=== PATIENT | male | born 1980 | race American Indian/Alaskan Native ===

== ENCOUNTER 2021-10-25 04:24 | Emergency (ER) | payer SELFPAY | END 2021-10-25 07:41 | disposition left against medical advice (07) | LOC: ED 04:24 | DX: R07.9 Chest pain, unspecified (principal); Z53.21 Procedure and treatment not carried out due to patient leaving prior to being seen by health care provider ==

== ENCOUNTER 2021-12-11 01:35 | Emergency (ER) | payer BC ==
[2021-12-11] MEDS ORDERED: ONDANSETRON 4 MG/2 ML INJ IV ONE (02:13)
[2021-12-11] MEDS ORDERED: KETOROLAC 30 MG/1 ML INJ IV ONE (02:13)
[2021-12-11] MEDS ORDERED: FAMOTIDINE 20 MG/2 ML INJ IV ONE (02:13)
[2021-12-11 02:54] LABS: Basophils % (Auto) 0.2 % (0.0-1.8); Eosinophils % (Auto) 0.2 % (0.0-4.3); Hematocrit 49.4 % (35.5-45.6); Hemoglobin 16.8 gm/dl (11.8-15.2); Lymphocytes # (Auto) 1.2 K/mm3 (1.2-5.4); Lymphocytes % (Auto) 16.6 % (13.4-35.0); Mean Corpuscular HGB Conc 34 % (32-34); Mean Corpuscular Volume 89 fl (84-94); Monocytes # (Auto) 0.2 K/mm3 (0.0-0.8); Monocytes % (Auto) 3.6 % (0.0-7.3); Platelet Count 286 K/mm3 (140-440); Red Blood Count 5.58 M/mm3 (3.65-5.03); Red Cell Distribution Width 13.4 % (13.2-15.2)
[2021-12-11 03:04] LABS: Alanine Aminotransferase 33 units/L (7-56); BUN/Creatinine Ratio 18; Blood Urea Nitrogen 14 mg/dL (9-20); Calcium 9.9 mg/dL (8.4-10.2); Hemolysis Index 19
--- NOTE | 2021-12-11 03:35 | Ultrasound Report ---
ULTRASOUND ABDOMEN, LIMITED INDICATION / CLINICAL INFORMATION: RUQ abdominal pain. COMPARISON: None available. FINDINGS: PANCREAS: Visualized portion shows no significant abnormality. LIVER: No significant abnormality. Normal hepatopedal blood flow in the main portal vein. GALLBLADDER: Distended gallbladder containing small stones. No wall thickening. BILE DUCTS: No significant abnormality. Common bile duct measures 3.6 mm. FREE FLUID: None. ADDITIONAL FINDINGS: None. IMPRESSION: 1. Gallstones within a distended gallbladder. 2. No wall thickening or biliary dilatation. Signer Name: Jose Antonio Nicholson MD Signed: 12/11/2021 3:31 AM Workstation Name: [id number]
--- NOTE | 2021-12-11 04:12 | Emergency Department Report ---
ED Abdominal Pain HPI - General Chief Complaint: Abdominal Pain Stated Complaint: CHEST PAIN Source: patient Mode of arrival: Ambulatory Limitations: No Limitations - History of Present Illness Initial Comments: Patient is a 41-year-old -[place] male with no past medical history presents to the ED with complaint of acute onset persistent right upper quadrant pain that radiates to the epigastric area with nausea and vomiting for the last 8 hours. Patient states that the pain has been constant and persistent and worse with food intake. Patient denies chest pain, shortness of breath, diarrhea, dizziness, syncope, dysuria, urinary frequency and urgency, traumatic injury, hematochezia, hematemesis, back pain, hematuria, hemoptysis, cough, fever and chills, sore throat or headache. MD Complaint: abdominal pain (RUQ and Epigastric pain), other (Nausea and vomiting) -: Sudden, hour(s) (8) Location: RUQ, epigastric Radiation: RUQ, epigastric Migration to: no migration Severity scale (0 -10): 7 Quality: aching, sharp Consistency: constant Improves With: nothing Worsens With: eating Associated Symptoms: denies other symptoms, nausea, vomiting, anorexia. denies: diarrhea, fever, chills, constipation, dysuria, hematemesis, hematochezia, melena, hematuria, syncope, other - Related Data Previous Rx's Medication Instructions Recorded Last Taken Type Dicyclomine [Bentyl] 20 mg PO Q6H PRN #30 tablet 12/11/21 Unknown Rx Famotidine [Pepcid] 20 mg PO BID #60 tablet 12/11/21 Unknown Rx Omeprazole 40 mg PO DAILY #60 cap 12/11/21 Unknown Rx Ondansetron [Zofran Odt] 4 mg PO Q6HR PRN #20 tab.rapdis 12/11/21 Unknown Rx traMADoL [Ultram] 50 mg PO Q6HR PRN #10 tablet 12/11/21 Unknown Rx Allergies Allergy/AdvReac Type Severity Reaction Status Date / Time No Known Allergies Allergy Unverified 12/11/21 01:37 ED Review of Systems ROS: Stated complaint: CHEST PAIN Other details as noted in HPI Constitutional: denies: chills, fever Eyes: denies: eye pain, eye discharge, vision change ENT: denies: ear pain, throat pain Respiratory: denies: cough, shortness of breath, wheezing Cardiovascular: denies: chest pain, palpitations Endocrine: no symptoms reported Gastrointestinal: abdominal pain (Epigastric and right upper quadrant pain), nausea, vomiting. denies: diarrhea Genitourinary: denies: urgency, dysuria Musculoskeletal: denies: back pain, joint swelling, arthralgia Skin: denies: rash, lesions Neurological: denies: headache, weakness, paresthesias Psychiatric: denies: anxiety, depression Hematological/Lymphatic: denies: easy bleeding, easy bruising ED Past Medical Hx - Past Medical History Previous Medical History?: No - Surgical History Past Surgical History?: No - Medications Home Medications: Home Medications Medication Instructions Recorded Confirmed Last Taken Type Dicyclomine [Bentyl] 20 mg PO Q6H PRN #30 tablet 12/11/21 Unknown Rx Famotidine [Pepcid] 20 mg PO BID #60 tablet 12/11/21 Unknown Rx Omeprazole 40 mg PO DAILY #60 cap 12/11/21 Unknown Rx Ondansetron [Zofran Odt] 4 mg PO Q6HR PRN #20 tab.rapdis 12/11/21 Unknown Rx traMADoL [Ultram] 50 mg PO Q6HR PRN #10 tablet 12/11/21 Unknown Rx ED Physical Exam - General Limitations: No Limitations General appearance: alert, in no apparent distress - Head Head exam: Present: atraumatic, normocephalic, normal inspection - Eye Eye exam: Present: normal appearance, PERRL, EOMI Pupils: Present: normal accommodation - ENT ENT exam: Present: normal exam, normal orophraynx, mucous membranes moist, TM's normal bilaterally, normal external ear exam - Neck Neck exam: Present: normal inspection, full ROM - Respiratory Respiratory exam: Present: normal lung sounds bilaterally. Absent: respiratory distress, wheezes, rales, rhonchi, chest wall tenderness, accessory muscle use, decreased breath sounds - Cardiovascular Cardiovascular Exam: Present: regular rate, normal rhythm, normal heart sounds. Absent: systolic murmur, diastolic murmur, rubs, gallop - GI/Abdominal GI/Abdominal exam: Present: soft, tenderness (Palpable right upper quadrant and epigastric tenderness with positive Turner sign), normal bowel sounds. Absent: hyperactive bowel sounds, hypoactive bowel sounds, organomegaly - Extremities Exam Extremities exam: Present: normal inspection, full ROM, normal capillary refill. Absent: tenderness, pedal edema - Back Exam Back exam: Present: normal inspection, full ROM. Absent: tenderness, CVA tenderness (R), CVA tenderness (L), muscle spasm, paraspinal tenderness, vertebral tenderness - Neurological Exam Neurological exam: Present: alert, oriented X3, CN II-XII intact, normal gait, reflexes normal - Psychiatric Psychiatric exam: Present: normal affect, normal mood - Skin Skin exam: Present: warm, dry, intact, normal color. Absent: rash ED Course Vital Signs 12/11/21 01:41 Temperature 98.2 F Pulse Rate 74 Respiratory 18 Rate Blood Pressure 140/88 O2 Sat by Pulse 93 Oximetry ED Medical Decision Making - Lab Data Result diagrams: 12/11/21 02:07 12/11/21 02:07 - Radiology Data Radiology results: report reviewed, image reviewed [facility] [address] [id number] Ultrasound Report Signed Patient: VIDA LANDIN MR#: [id number] : 1980 Acct:[id number] Age/Sex: 41 / M ADM Date: 12/11/21 Loc: ED Attending Dr: Ordering Physician: MAYE LENTZ Date of Service: 12/11/21 Procedure(s): US abdomen limited Accession Number(s): [id number] cc: MAYE LENTZ ULTRASOUND ABDOMEN, LIMITED INDICATION / CLINICAL INFORMATION: RUQ abdominal pain. COMPARISON: None available. FINDINGS: PANCREAS: Visualized portion shows no significant abnormality. LIVER: No significant abnormality. Normal hepatopedal blood flow in the main portal vein. GALLBLADDER: Distended gallbladder containing small stones. No wall thickening. BILE DUCTS: No significant abnormality. Common bile duct measures 3.6 mm. FREE FLUID: None. ADDITIONAL FINDINGS: None. IMPRESSION: 1. Gallstones within a distended gallbladder. 2. No wall thickening or biliary dilatation. Signer Name: Jose Antonio Nicholson MD Signed: 12/11/2021 3:31 AM Workstation Name: [id number] Transcribed By: JAY Dictated By: Jose Antonio Nicholson MD Electronically Authenticated By: Jose Antonio Nicholson MD Signed Date/Time: 12/11/21330 DD/ 0330 TD/TT: - Medical Decision Making This is a 41-year-old -[place] male with no past medical history presents to the ED with complaint of acute onset persistent right upper quadrant pain that radiates to the epigastric area with nausea and vomiting for the last 8 hours. Patient states that the pain has been constant and persistent and worse with food intake. In the ED, patient is alert and oriented x3 and is not in any distress. Lab test results were reviewed and are all nonactionable. Patient was treated for pain in the ED and also given antacids and antiemetics. The gallbladder ultrasound showed gallstones within a distended gallbladder with no wall thickening or biliary dilatation. On reevaluation, patient's pain is well controlled medication. Patient has not had any nausea or vomiting in the ED. Patient was therefore discharged home on pain medications, antiemetics as well as antacids and was given a referral to the general surgeon on-call Dr. Eduardo for follow-up. Patient is advised to contact Dr. Eduardo's office first in the morning on Saturday, December 11, 2021 to schedule a follow-up appointment. Patient was otherwise advised return to the ED immediately if symptoms get worse. - Differential Diagnosis Cholelithiasis; cholecystitis; GERD; gastritis; kidney stones; pneumonia Critical care attestation.: If time is entered above; I have spent that time in minutes in the direct care of this critically ill patient, excluding procedure time. ED Disposition Clinical Impression: Acute abdominal pain in right upper quadrant, Nausea and vomiting in adult, Cholelithiasis without cholecystitis GERD (gastroesophageal reflux disease) Qualifiers: Esophagitis presence: esophagitis presence not specified Qualified Code(s): K21.9 - Gastro-esophageal reflux disease without esophagitis Disposition: 01 HOME / SELF CARE / HOMELESS Is pt being admited?: No Does the pt Need Aspirin: No Condition: Stable Instructions: Heartburn, [id number]-aw-[id number], Cholelithiasis, [id number]-[id number], Abdominal Pain, Adult, Sztb-bi-Duaa, Nausea and Vomiting, Adult, Umid-by-Qfrt, Gastroesophageal Reflux Disease, Adult, [id number]-[id number]-Qkui Additional Instructions: All lab test results were reviewed and are all nonactionable. Gallbladder ultrasound showed gallstones within a distended gallbladder with no wall thickening or biliary dilatation. Therefore your symptoms are likely due to gallstones, versus GERD and therefore follow-up with the general surgeon on-call Dr. Eduardo for further evaluation. Contact Dr. Eduardo's office first thing in the morning on November to schedule a follow-up appointment. Return to the ED immediately if symptoms get worse. Prescriptions: Dicyclomine [Bentyl] 20 mg PO Q6H PRN #30 tablet PRN Reason: Abdominal pain Omeprazole 40 mg PO DAILY #60 cap Famotidine [Pepcid] 20 mg PO BID #60 tablet traMADoL [Ultram] 50 mg PO Q6HR PRN #10 tablet PRN Reason: Pain Ondansetron [Zofran Odt] 4 mg PO Q6HR PRN #20 tab.rapdis PRN Reason: Nausea Referrals: BRIAN MORENO MD [Staff Physician] - 7-10 days SCOOTER EDUARDO DO [Staff Physician] - 2-3 Days Forms: Work/School Release Form(ED) Time of Disposition: 04:16 Print Language: UZBEK
[2021-12-11 05:12] VITALS: BP 132/75
[2021-12-11 07:03] LABS: Bilirubin,Urine NEG (Negative); Blood,Urine NEG (Negative); Color,Urine Yellow (Yellow); Mucus,Urine 3+ /HPF; Urobilinogen,Urine < 2.0 mg/dL (<2.0)
== END 2021-12-11 05:12 | disposition home or self-care (01) ==
LOC: ED 01:35
DX: K21.9 Gastro-esophageal reflux disease without esophagitis (principal); K80.10 Calculus of gallbladder with chronic cholecystitis without obstruction; R10.10 Upper abdominal pain, unspecified; R11.2 Nausea with vomiting, unspecified
CPT/HCPCS: 36415; 76705; 80053; 81001; 85025; 96374; 96375; 99284; J1885; J2405; J3490

== ENCOUNTER 2022-01-12 06:01 | Day surgery (SDC) | payer BC ==
[2022-01-12] MEDS ORDERED: LACTATED RINGERS 1,000 ML ONE ×2 (06:06→09:16)
[2022-01-12] MEDS ORDERED: SODIUM CHLORIDE 0.9% 1000 ML 1,000 ML IV SCH (06:30)
[2022-01-12] MEDS ORDERED: ceFAZolin/STERILE WATER 2 GM/20 ML SYRINGE IV NR (07:00)
[2022-01-12] MEDS ORDERED: LIDOCAINE (1%) 10 MG/1 ML VIAL 20 ML MDV ONE (07:11)
[2022-01-12] MEDS ORDERED: BUPIVACAINE/PF (0.5%) 5 MG/1 ML 30 ML VIAL INFILTRATI ONE ×2 (07:11→08:58)
[2022-01-12] MEDS ORDERED: LIDOCAINE MPF (2%) 20 MG/1 ML VIAL 5 ML ONE (07:14)
[2022-01-12] MEDS ORDERED: propofoL 200 MG/20 ML VIAL IV ONE (07:14)
[2022-01-12] MEDS ORDERED: dexAMETHasone 20 MG/5 ML VIAL ONE (07:14)
[2022-01-12] MEDS ORDERED: fentaNYL 100 MCG/2 ML INJ ONE (07:14)
[2022-01-12] MEDS ORDERED: ONDANSETRON 4 MG/2 ML INJ ONE (07:14)
[2022-01-12] MEDS ORDERED: ROCURONIUM 50 MG/5 ML INJ IV ONE (07:14)
[2022-01-12] MEDS ORDERED: MIDAZOLAM 2 MG/2 ML INJ ONE (07:32)
[2022-01-12] MEDS ORDERED: HYDROmorphone 1 MG/1 ML INJ IV PRN ×2 (08:02)
--- NOTE | 2022-01-12 08:39 | Anesthesia Consultation ---
Anesthesia Consult and Med Hx Date of service: 01/12/22 - Airway Anesthetic Teeth Evaluation: Good (Missing incisors) ROM Head & Neck: Adequate Mental/Hyoid Distance: Adequate Mallampati Class: Class I Intubation Access Assessment: Good - Cardiac Exam Cardiac Exam: No Murmur - Pre-Operative Health Status ASA Pre-Surgery Classification: ASA1 Proposed Anesthetic Plan: General - Pulmonary Hx Smoking: No Hx Asthma: No Hx Sleep Apnea: No (PINEDA PRE SCREEN LOW RISK) - Cardiovascular System Hx Hypertension: No - Central Nervous System Hx Psychiatric Problems: No - Gastrointestinal Hx Gastroesophageal Reflux Disease: No - Hematic Hx Anemia: No - Other Systems Hx Alcohol Use: No Hx Cancer: No
--- NOTE | 2022-01-12 08:40 | Anesthesia Day of Surgery ---
Anesthesia Day of Surgery - Day of Surgery Patient Examined: Yes Patient H&P Reviewed: Yes Patient is NPO: Yes Beta Blockers: No
[2022-01-12] MEDS ORDERED: WATER FOR IRRIG STERILE 1,500 ML BOTTLE IR ONE (08:59)
[2022-01-12] MEDS ORDERED: LIDOCAINE (1%) 10 MG/1 ML VIAL 20 ML MDV INFILTRATI ONE (08:59)
[2022-01-12] MEDS ORDERED: ONDANSETRON 4 MG/2 ML INJ IV PRN (09:00)
[2022-01-12] MEDS ORDERED: KETOROLAC 30 MG/1 ML INJ ONE (09:05)
--- NOTE | 2022-01-12 09:26 | Short Stay Summary ---
Short Stay Documentation Date of service: 01/12/22 - History Principal diagnosis: Symptomatic cholelithiasis H&P: obtained from office - Allergies and Medications Current Medications: Allergies No Known Allergies Allergy (Verified 01/03/22 16:54) Home Medications Medication Instructions Recorded Confirmed Last Taken Type traMADoL [Ultram] 50 mg PO Q6HR PRN #10 tablet 12/11/21 01/03/22 Unknown Rx Active Medications Cefazolin Sodium (Cefazolin/Sterile Water 2 Gm/20 Ml Syringe) 2 gm IV PREOP NR Stop: 01/12/22 23:59 Hydromorphone HCl (Hydromorphone 1 Mg/1 Ml Inj) 0.25 mg IV Q10MIN PRN PRN Reason: Pain, Moderate (4-6) Stop: 01/12/22 23:00 Hydromorphone HCl (Hydromorphone 1 Mg/1 Ml Inj) 0.5 mg IV Q10MIN PRN PRN Reason: Pain , Severe (7-10) Stop: 01/12/22 20:00 Sodium Chloride (Nacl 0.9% 1000 Ml) 1,000 mls @ 125 mls/hr IV PREOP BRITTANY Ondansetron HCl (Ondansetron 4 Mg/2 Ml Inj) 4 mg IV ONCE PRN PRN Reason: Nausea And Vomiting Stop: 01/12/22 11:00 - Brief post op/procedure progress note Date of procedure: 01/12/22 Pre-op diagnosis: Calculus of gallbladder without cholecystitis or obstruction Post-op diagnosis: same Procedure: Robotic assisted cholecystectomy Anesthesia: GETA, local Findings: Mildly distended gallbladder Surgeon: SCOOTER EDUARDO Title Closer: JACQUELIN DAMON Estimated blood loss: minimal (25CC) Pathology: list (Gallbladder) Specimen disposition: to lab Condition: stable - Hospital course Hospital course: Patient observed in PACU and discharged home in stable condition when criteria met - Disposition Condition at discharge: Good Disposition: 01 HOME / SELF CARE / HOMELESS Short Stay Discharge Plan Activity: other (No heavy lifting for 1 week, no driving while taking prescription pain medication) Diet: regular Wound: open to air, per your surgeon's advice Additional Instructions: See printed discharge instructions Follow up with: PRIMARY CARE,MD [Primary Care Provider] - 7 Days SCOOTER EDUARDO DO [Staff Physician] - 14 Days Prescriptions: HYDROcodone/APAP 5-325 [[facility] 5/325] 1 each PO Q6HR PRN #20 tablet PRN Reason: Pain , Severe (7-10)
--- NOTE | 2022-01-12 09:29 | Operative Report ---
Operative Report Operative Report: Date of procedure: Pre-op diagnosis: Symptomatic cholelithiasis Post-op diagnosis: same Procedure: Robotic assisted cholecystectomy Anesthesia: GETA, local Findings: Distended gallbladder Surgeon: SCOOTER EDUARDO DO Collaborative Teacher: Monica Brandt MD Estimated blood loss: 25cc Pathology: list (Gallbladder) Specimen disposition: to lab Condition: stable Hospital course: Patient observed in PACU and discharged home in stable condition when criteria met Condition at discharge: Good Disposition: 01 HOME / SELF CARE HPI an indication: 41-year-old male who presented to the surgery clinic with complaints of intermittent sharp right upper quadrant abdominal pain. Patient found to have stones in the gallbladder without evidence of cholecystitis or biliary ductal dilatation. Symptoms were believed to be due to symptomatic cholelithiasis. It was recommended that the patient undergo cholecystectomy. All risks, benefits, alternatives to surgery were discussed in detail and questions answered. Consent was obtained for robotic assisted laparoscopic, possible open cholecystectomy, possible cholangiogram. Procedure in detail: The patient was identified in the preoperative area and taken back to the operating room, placed on the operating room table in supine position. After anesthesia was induced, the abdomen was prepped and draped in usual sterile fashion and timeout was performed. Local anesthetic was infiltrated into all of the skin incision sites. A right sided paraumbilical incision was made through which a Veress needle was inserted. The Veress needle positioning was confirmed using saline drop test and the abdomen insufflated to 15 mmHg without incident. The Veress needle was then removed and a 5 mm Optiview trocar was placed. The abdomen was inspected and there was no underlying injury to the abdominal structures. An 8 mm robotic trocar was placed in the right upper abdomen, and left mid abdomen, and in the left lateral abdomen all under direct visualization. The 5 mm supraumbilical trocar was removed and replaced with a 12 mm balloon trocar under direct visualization. Th e patient was placed in reverse Trendelenburg and tilted to the left. The robot was then docked. A monopolar hook was placed in arm #1, a caudier grasper in arm #2, and a prograsp in arm #3. The surgeon was then transferred to the console. The gallbladder was mildly distended. It was grasped and retracted cephalad and above the liver. The cystic duct and artery were carefully skeletonized. The medial and lateral peritoneal attachments to the gallbladder were dissected using a combination of blunt dissection and hook electrocautery. The cystic duct and artery were the only 2 structures seen entering the gallbladder and the critical view was successfully obtained. 2 hemolock clips were placed on the proximal aspect of the cystic duct and 1 distally, and 2 hemolock clip placed on the proximal aspect of the cystic artery. Cystic artery was transected in between the clips using EndoShears by the secretary administrative assistant. The cystic artery was ligated using the hook electrocautery. The gallbladder was dissected from the liver bed using electrocautery. Once completely dissected it was placed into the right upper quadrant and the liver bed was examined for hemostasis. This was very carefully ensured. The clips were visualized and intact. There was no bleeding or bile leakage. The robot was then undocked and the surgeon scrubbed back in. The remainder of the case was performed laparoscopically. The gallbladder was placed into a Endo Catch bag and removed from the abdomen via the 12mm port. The 12 mm port fascia was closed with interrupted 0 Vicryl sutures using the Leroy Sykes device. The remaining ports were removed under direct visualization. Skin incisions were closed with 4-0 Monocryl subcuticular stitches and skin glue. All skin incisions were once again infiltrated with local anesthetic. At the end case all sponge, instrument, sharp counts were correct 2. The patient was awoken from anesthesia, extubated, and taken to PACU in stable condition.
--- NOTE | 2022-01-12 12:30 | Post Anesthesia Evaluation ---
- Post Anesthesia Evaluation Patient Participated: Yes Airway Patent: Yes Stable Respiratory Function: Yes Nausea/Vomiting: No Temp > 96.8F: Yes Pain Manageable: Yes Adequeate Hydration: Yes Anesthesia Complications: No Block Receding Appropriately: Not Applicable Patient on Ventilator: No
[2022-01-12 15:08] VITALS: BP 142/87
== END 2022-01-12 11:15 | disposition home or self-care (01) ==
LOC: OR 06:01
PROVIDERS: ATTEND Surgery
DX: K80.10 Calculus of gallbladder with chronic cholecystitis without obstruction (principal); Z79.899 Other long term (current) drug therapy; Z98.890 Other specified postprocedural states
CPT/HCPCS: 47562; 88304; J0690; J1100; J1170; J1885; J2250; J2405; J2704; J3010; J3490; J7120; S2900